=== PATIENT | male | born 1985 | race Caucasian/White ===

== ENCOUNTER 2017-10-14 05:18 | Emergency (ER) | payer SELFPAY ==
[~2017-10-14] VITALS: Ht 180.3 cm; Wt 68.2 kg
[~2017-10-14 05:18] MED LIST: AMOXICILLIN 50500 MG PO; LORTAB 5/500 501 TAB PO; NO HOME MEDICATIONS
[2017-10-14 05:19] VITALS: TEMP 97.7
[2017-10-14 05:56] LABS: COLLECTION METHOD CLEAN CATCH
[2017-10-14 06:06] LABS: HYALINE CAST >12 /lpf; MUCOUS Present /lpf; PH 6 (5-8); SQUAMOUS EPITHELIAL 0-2 /hpf; URINE APPEARANCE Clear; URINE BACTERIA None Seen /hpf; URINE BILIRUBIN Negative (NEGATIVE); URINE BLOOD Negative (NEGATIVE); URINE COLOR Yellow; URINE GLUCOSE Negative (NEGATIVE); URINE KETONE Negative (NEGATIVE); URINE LEUKOCYTE ESTERASE Negative (NEGATIVE); URINE NITRATE Negative (NEGATIVE); URINE PROTEIN(semi-quant) Negative (NEGATIVE); URINE RBC 0-2 /hpf; URINE UROBILINOGEN Negative (NEGATIVE)
[2017-10-14] MEDS ORDERED: NORCO 325 MG-51 TAB PO (06:32)
[2017-10-14 06:40] VITALS: BP 114/69; PULSE 86
== END 2017-10-14 06:49 | disposition home or self-care (01) ==
LOC: COL.ER 05:18
PROVIDERS: Emergency Medicine
DX: S20.212A Contusion of left front wall of thorax, initial encounter (principal); F17.210 Nicotine dependence, cigarettes, uncomplicated; F12.90 Cannabis use, unspecified, uncomplicated; Y09 Assault by unspecified means

== ENCOUNTER 2020-04-04 19:09 | Emergency (ER) | payer SELFPAY ==
[~2020-04-04] VITALS: Ht 182.9 cm; Wt 68.2 kg
[~2020-04-04 19:09] MED LIST changes: +NORCO 325 MG-51 TAB PO
[2020-04-04] MEDS ORDERED: NAPROSYN500 MG PO (20:01)
[2020-04-04] MEDS ORDERED: BACITRACIN TOPIC1 TU TOP (20:01)
[2020-04-04 20:30] VITALS: BP 138/74; PULSE 84; TEMP 98.4
== END 2020-04-04 20:36 | disposition home or self-care (01) ==
LOC: COL.ER 19:09
DX: M54.5 Low back pain (principal); T24.012A Burn of unspecified degree of left thigh, initial encounter; X19.XXXA Contact with other heat and hot substances, initial encounter

== ENCOUNTER 2020-07-16 09:01 | Emergency (ER) | payer SELFPAY ==
[~2020-07-16] VITALS: Ht 180.3 cm; Wt 68.2 kg
[~2020-07-16 09:01] MED LIST changes: +BACITRACIN TOPIC1 TU TOP; +NAPROSYN500 MG PO
[2020-07-16 09:36] LABS: BASO # 0.1 (0.0-0.2); BASO % 0.8 % (0.0-2.0); EOS # 0.3 (0.0-0.7); EOS % 2.4 % (0-4.0); GRAN # 5.7 (1.4-6.5); GRAN % 50.7 % (42.2-75.2); HEMATOCRIT 45.5 % (42.0-52.0); HEMOGLOBIN 14.7 g/dl (13.5-18.0); LYMPH # 4.3 (1.2-3.4); LYMPH % 37.9 % (20.0-51.0); MEAN CELL VOLUME 85 fl (80.0-100.0); MEAN CORPUSCULAR HEMOGLOBIN 28 pg (27.0-31.0); MEAN CORPUSCULAR HGB CONC 32 g/dl (33.0-37.0); MEAN PLATELET VOLUME 9.5 fl (7.4-10.4); MONO # 0.9 (0.1-0.6); MONO % 7.9 % (1.7-9.3); PLATELET COUNT 278 K/mm3 (130-400); RED BLOOD COUNT 5.34 M/mm3 (4.20-5.60)
[2020-07-16 09:49] LABS: ALANINE AMINOTRANSFERASE 574 U/L (4-49); ALKALINE PHOSPHATASE 122 U/L (50-136); ANION GAP 8 mmol/L (7-16); AST,SGOT 248 U/L (15-37); BILIRUBIN,TOTAL 0.2 mg/dL (0.0-1.0); BLOOD UREA NITROGEN 16 mg/dL (9-20); CALCIUM 9.4 mg/dL (8.4-10.2); CARBON DIOXIDE 29 mmol/L (22-30); CHLORIDE 100 mmol/L (98-107); CREATININE, serum 0.81 (0.66-1.25); GLUCOSE 92 mg/dL (74-106); POTASSIUM 4.3 mmol/L (3.4-5.0); SODIUM 137 mmol/L (137-145); TOTAL PROTEIN 8.2 gm/dL (6.4-8.2)
[2020-07-16 09:50] LABS: C-REACTIVE PROTEIN < 0.5 mg/dL (0.0-0.9)
[2020-07-16 09:56] LABS: ERYTHROCYTE SEDIMENTATION RATE 2 mm/hr (0-15)
[2020-07-16 14:00] VITALS: TEMP 97.4
[2020-07-16] MEDS ORDERED: ROBAXIN 75750 MG/TAB PO (15:57)
[2020-07-16 16:03] VITALS: BP 115/80; PULSE 99
== END 2020-07-16 16:02 | disposition home or self-care (01) ==
LOC: COL.ER 09:01
PROVIDERS: Emergency Medicine
DX: M54.5 Low back pain (principal); F17.210 Nicotine dependence, cigarettes, uncomplicated
CPT/HCPCS: J1885; J3010